=== PATIENT | male | born 1955 | race Caucasian/White ===

== ENCOUNTER 2016-08-31 09:44 | Outpatient (CLI) | payer OTHER ==
[2016-08-31 11:47] LABS: #Eosinphils 0.2 thou/uL (0.0-0.7); #Lymphocytes 1.8 thou/uL (1.20-3.40); #Monocytes 0.5 thou/uL (0.11-0.59); #Neutrophils 3.9 thou/uL (1.40-6.50); %Basophils 0.6 % (0.0-1.0); %Eosinophils 2.4 % (0.0-10.0); %Monocytes 7.7 % (0.0-10.0); Hematocrit 49.4 % (42.0-52.0); Red Blood Cell (RBC) Count 5.18 mill/uL (4.70-6.10); White Blood Cell (WBC) Count 6.4 thou/uL (4.8-10.8)
[2016-08-31 12:22] LABS: ALT (SGPT) 33 U/L (0-55); AST (SGOT) 22 U/L (5-34); Alkaline Phosphatase 62 U/L (40-150); Anion Gap 16 mmol/L (10-20); BUN (Urea Nitrogen) 14 mg/dL (8.4-25.7); Bilirubin, Total 0.8 mg/dL (0.2-1.2); Calc. Creatinine Clearance 0 mL/min (70-130); Carbon Dioxide 21 mmol/L (22-29); Chloride 106 mmol/L (98-107); Estimated GFR-MDRD Greater than 90; Globulin 3.1 g/dL (2.4-3.5); LDL Cholesterol, Calculated 96 mg/dL; Protein, Total 7.2 g/dL (6.0-8.3)
== END 2016-08-31 09:45 | disposition home or self-care (01) ==
LOC: HPCALD 09:44
PROVIDERS: ATTEND Family Medicine
DX: Z12.5 Encounter for screening for malignant neoplasm of prostate (principal); E11.9 Type 2 diabetes mellitus without complications; I10 Essential (primary) hypertension; E78.5 Hyperlipidemia, unspecified
CPT/HCPCS: 36415; 80053; 80061; 83036; 85025; G0103

== ENCOUNTER 2017-02-28 08:17 | Outpatient (CLI) | payer OTHER ==
[2017-02-28 10:46] LABS: ALT (SGPT) 38 U/L (8-55); AST (SGOT) 27 U/L (5-34); Albumin 4.2 g/dL (3.4-4.8); Alkaline Phosphatase 66 U/L (40-150); Anion Gap 19 mmol/L (10-20); BUN (Urea Nitrogen) 16 mg/dL (8.4-25.7); Bilirubin, Total 0.9 mg/dL (0.2-1.2); Calc. Creatinine Clearance 0 mL/min (70-130); Calcium 9.7 mg/dL (7.8-10.44); Carbon Dioxide 24 mmol/L (23-31); Cardiac Risk 4.6 (Less than 4.5); Chloride 103 mmol/L (98-107); Cholesterol 153 mg/dl (< 200 Desired); Estimated GFR-MDRD Greater than 90; Globulin 3.4 g/dL (2.4-3.5); Glucose 136 mg/dL (80-115); HDL Cholesterol 33 mg/dL (>60 Neg Risk); LDL Cholesterol, Calculated 84 mg/dL; Potassium 4.7 mmol/L (3.5-5.1); Protein, Total 7.6 g/dL (5.8-8.1); Sodium 141 mmol/L (136-145); Triglycerides 178 mg/dL (Less than 150)
[2017-02-28 11:10] LABS: #Eosinphils 0.3 thou/uL (0.0-0.7); #Lymphocytes 1.9 thou/uL (1.20-3.40); #Monocytes 0.6 thou/uL (0.11-0.59); #Neutrophils 4.2 thou/uL (1.40-6.50); %Basophils 0.7 % (0.0-1.0); %Eosinophils 3.7 % (0.0-10.0); %Monocytes 7.9 % (0.0-10.0); %Neutrophils 60.7 % (42.0-75.0); Hemoglobin 16.9 g/dL (14.0-18.0); Mean Corpuscular HGB CONC 34.5 g/dL (32.0-36.0); Mean Corpuscular Hemoglobin 32.5 pg (27.0-31.0); Mean Corpuscular Volume 94.2 fl (80.0-94.0); Mean Platelet Volume 7.1 fL (7.4-10.4); Platelet Count 201 thou/uL (130-400); RBC Distribution Width 11.8 % (11.5-14.5)
[2017-02-28 12:12] LABS: Hemoglobin A1c 6.4 % (4.0-6.0)
== END 2017-02-28 08:18 | disposition home or self-care (01) ==
LOC: HPCALD 08:17
PROVIDERS: ATTEND Family Medicine
DX: E78.5 Hyperlipidemia, unspecified (principal); E11.9 Type 2 diabetes mellitus without complications; I10 Essential (primary) hypertension
CPT/HCPCS: 36415; 80053; 80061; 83036; 85025

== ENCOUNTER 2018-10-22 13:38 | Outpatient (CLI) | payer OTHER ==
--- NOTE | 2018-10-22 20:12 | RAD ---
LEFT RIBS FOUR VIEWS 10/22/18 The lower ribs are very difficult to see well on this patient, in spite of multiple attempts. No jack s fractures were seen, though subtle fractures would be easily missed on this study. There may be a l ittle atelectasis in the left base. No pneumothorax was seen. No large effusions were detected. The p atient likely has a hiatal hernia centrally. The left lung is clear. IMPRESSION: Low sensitivity study showing no gross rib fracture POS: HOME
== END 2018-10-22 13:39 | disposition home or self-care (01) ==
LOC: BURRAD 13:38
PROVIDERS: ATTEND Family Medicine
DX: R07.81 Pleurodynia (principal)

== ENCOUNTER 2019-08-22 10:22 | Outpatient (CLI) | payer OTHER ==
--- NOTE | 2019-08-22 11:47 | RAD ---
LEFT SHOULDER: DATE: 08/22/2019. FINDINGS: Multiple views show no fracture, dislocation, or AC joint widening. No periarticular calcifications were seen. There is some minor bony spurring in the AC joint. IMPRESSION: No acute finding. POS: HOME
== END 2019-08-22 10:23 | disposition home or self-care (01) ==
LOC: BURRAD 10:22
PROVIDERS: ATTEND Family Medicine
DX: M25.512 Pain in left shoulder (principal)